=== PATIENT | female | born 1980 | race Caucasian/White ===

== ENCOUNTER 2016-11-07 16:22 | Emergency (ER) | payer OTHER ==
[2016-11-07] MEDS ORDERED: NS 1,000 ML IV ONE ×2 (16:50→17:46)
[2016-11-07] MEDS ORDERED: ONDANSETRON 4 MG/2 ML VIAL IVP ONE (16:50)
[2016-11-07] MEDS ORDERED: LORazepam 2 MG/ML INJ IVP ONE (16:51)
--- NOTE | 2016-11-07 16:52 | UCPHY ---
H & P Patient Type: Established Time Seen by Provider: 11/07/16 16:41 HPI/ROS: CHIEF COMPLAINT: Vomiting and diarrhea HISTORY OF PRESENT ILLNESS: The patient is a 36-year-old female whose had diarrhea for the last 3 days who began vomiting today. She states that she has vomited more times than she can count. No blood from either direction. No fever. No abdominal pain. No chest pain or shortness of breath. No urinary symptoms. No vaginal symptoms. No sick contacts. No travel. No drinking unfiltered water. No recent antibiotics. REVIEW OF SYSTEMS: Constitutional: denies: chills, fever, recent illness, recent injury EENTM: denies: blurred vision, double vision, nose congestion Respiratory: denies: cough, shortness of breath Cardiac: denies: chest pain, irregular heart rate, lightheadedness, palpitations Gastrointestinal/Abdominal: See HPI Genitourinary: denies: dysuria, frequency, hematuria, pain Musculoskeletal: denies: joint pain, muscle pain Skin: denies: lesions, rash, jaundice, bruising Neurological: denies: headache, numbness, paresthesia, tingling, dizziness, weakness Hematologic/Lymphatic: denies: blood clots, easy bleeding, easy bruising Immunologic/allergic: denies: HIV/AIDS, transplant EXAM: GENERAL: Fatigued, well-nourished and in no acute distress. HEAD: Atraumatic, normocephalic. EYES: Pupils equal round and reactive to light, extraocular movements intact, sclera anicteric, conjunctiva are normal. ENT: TMs normal, nares patent, oropharynx clear without exudates. Tachy mucous membranes. NECK: Normal range of motion, supple without lymphadenopathy or JVD. LUNGS: Breath sounds clear to auscultation bilaterally and equal. No wheezes rales or rhonchi. HEART: Regular rate and rhythm without murmurs, rubs or gallops. ABDOMEN: Soft, nontender, normoactive bowel sounds. No guarding, no rebound. No masses appreciated. BACK: No CVA tenderness, no spinal tenderness, step-offs or deformities EXTREMITIES: Normal range of motion, no pitting or edema. No clubbing or cyanosis. NEUROLOGICAL: Cranial nerves II through XII grossly intact. Normal speech, normal gait. 5/5 strength, normal movement in all extremities, normal sensation PSYCH: Normal mood, normal affect. SKIN: Warm, dry, normal turgor, no visible rashes or lesions. Source: Patient Exam Limitations: No limitations - Personal History Tetanus Vaccine Date: 09/2011 - Medical/Surgical History Hx Asthma: No Hx Chronic Respiratory Disease: No Hx Diabetes: No Hx Cardiac Disease: No Hx Renal Disease: No Hx Cirrhosis: No Hx Alcoholism: Yes Hx HIV/AIDS: No Hx Splenectomy or Spleen Trauma: No Other PMH: alcoholism,Bulemia. anxiety associated chest pain. kidney infection (about 2010). She had a negative CT angio chest at [facility] on April 23, 2016. They pursued this study due to an elevated D-dimer at that time. - Family History Significant Family History: No pertinent family hx - Social History Smoking Status: Never smoked Alcohol Use: Sober Drug Use: None Constitutional: Initial Vital Signs Temperature (C) 37.1 C 11/07/16 16:39 Heart Rate 80 11/07/16 16:39 Respiratory Rate 18 11/07/16 16:39 Blood Pressure 113/80 11/07/16 16:39 O2 Sat (%) 96 11/07/16 16:39 O2 Delivery Mode Room Air Allergies/Adverse Reactions: hydrocodone bitartrate [From [place]] Allergy (Severe, Verified 05/06/16 08:47) Itching Home Medications: Medication Instructions Recorded Levothyroxine [Synthroid 25 mcg 05/06/16 (*)] Norgestimate-Ethinyl Estradiol 05/06/16 [Sprintec 28 Day Tablet] Potassium Chloride [Klor-Con 05/06/16 Sprinkle] Ondansetron Odt [Zofran Odt 4 mg 4 mg PO Q4 PRN #20 tab 11/07/16 (RX)] Medical Decision Making ED Course/Re-evaluation: 5:45 p.m. the patient is doing much better. Her abdominal exam remains benign. She is walking to the bathroom. I will treat her with Toradol and more IV fluids. And continue to observe. 7:05 p.m. the patient is feeling much better. Her abdominal exam is benign. She is requesting more Ativan for mild tremors and anxiety. She denies recent alcohol use. She does have a history of alcohol abuse. She states that she is not withdrawing. Will give her some Ativan but she would prefer to take at home. I will also prescribe her Zofran. She is happy with this and declines any further workup or testing. Differential Diagnosis: Partial list of the Differential diagnosis considered include but were not limited to; gastroenteritis, appendicitis, biliary disease, alcohol withdrawal and although unlikely based on the history and physical exam, I also considered , ischemia, obstruction, ovarian cyst, ovarian torsion. I discussed these differential diagnoses and the plan with the patient as well as the usual and expected course. The patient understands that the diagnosis is provisional and that in medicine we are not always correct and that further workup is often warranted. Usual and customary warnings were given. All of the patient's questions were answered. The patient was instructed to return to the emergency department should the symptoms at all worsen or return, otherwise to followup with the physician as we discussed. - Data Points Laboratory Results: Laboratory Results 11/07/16 16:47 11/07/16 16:47 11/07/16 11/07/16 16:47 16:47 WBC 3.82 10^3/uL 10^3/uL (3.80-9.50) RBC 3.30 10^6/uL L 10^6/uL (4.18-5.33) Hgb 11.1 g/dL L g/dL (12.6-16.3) Hct 32.6 % L % (38.0-47.0) MCV 98.8 fL fL (81.5-99.8) MCH 33.6 pg pg (27.9-34.1) MCHC 34.0 g/dL g/dL (32.4-36.7) RDW 12.1 % % (11.5-15.2) Plt Count 187 10^3/uL 10^3/uL (150-400) MPV 8.9 fL fL (8.7-11.7) Neut % (Auto) 59.4 % % (39.3-74.2) Lymph % (Auto) 26.7 % % (15.0-45.0) [place] % (Auto) 11.8 % % (4.5-13.0) Eos % (Auto) 0.5 % L % (0.6-7.6) Baso % (Auto) 0.8 % % (0.3-1.7) Nucleat RBC Rel Count 0.0 % % (0.0-0.2) Absolute Neuts (auto) 2.27 10^3/uL 10^3/uL (1.70-6.50) Absolute Lymphs (auto) 1.02 10^3/uL 10^3/uL (1.00-3.00) Absolute Monos (auto) 0.45 10^3/uL 10^3/uL (0.30-0.80) Absolute Eos (auto) 0.02 10^3/uL L 10^3/uL (0.03-0.40) Absolute Basos (auto) 0.03 10^3/uL 10^3/uL (0.02-0.10) Absolute Nucleated RBC 0.00 10^3/uL 10^3/uL (0-0.01) Immature Gran % 0.8 % % (0.0-1.1) Immature Gran # 0.03 10^3/uL 10^3/uL (0.00-0.10) Sodium 135 mEq/L mEq/L (134-144) Potassium 3.6 mEq/L mEq/L (3.5-5.2) Chloride 98 mEq/L mEq/L (97-110) Carbon Dioxide 25 mEq/l mEq/l (22-31) Anion Gap 12 mEq/L mEq/L (8-16) BUN 8 mg/dL mg/dL (7-23) Creatinine 0.6 mg/dL mg/dL (0.6-1.0) Estimated GFR > 60 Glucose 121 mg/dL H mg/dL (70-100) Calcium 8.0 mg/dL L mg/dL (8.5-10.4) Medications Given: Discontinued Medications Sodium Chloride (Ns) 1,000 mls @ 0 mls/hr IV ONCE ONE PRN Reason: Wide Open Stop: 11/07/16 16:51 Last Admin: 11/07/16 16:50 Dose: 1,000 mls Sodium Chloride (Ns) 1,000 mls @ 0 mls/hr IV ONCE ONE PRN Reason: Wide Open Stop: 11/07/16 17:47 Last Admin: 11/07/16 17:55 Dose: 1,000 mls Ketorolac Tromethamine (Toradol) 30 mg IVP EDNOW ONE Stop: 11/07/16 17:47 Last Admin: 03/16/17 17:55 Dose: 30 mg Lorazepam (Ativan Injection) 1 mg IVP EDNOW ONE Stop: 11/07/16 16:52 Last Admin: 11/07/16 16:55 Dose: 1 mg Lorazepam (Ativan 1 Mg Prepack#4) 1 btl TAKEHOME EDNOW ONE Stop: 11/07/16 19:13 Last Admin: 11/07/16 19:27 Dose: 1 btl Ondansetron HCl (Zofran) 4 mg IVP EDNOW ONE Stop: 11/07/16 16:51 Last Admin: 11/07/16 16:50 Dose: 4 mg Departure - Departure Disposition: Home, Routine, Self-Care Clinical Impression: Vomiting and diarrhea, Anxiety Condition: Fair Instructions: Lorazepam (By mouth), Acute Nausea and Vomiting (ED), Acute Diarrhea (ED), Anxiety (ED) Referrals: Anne Buchanan MD [Primary Care Provider] - As per Instructions Prescriptions: Ondansetron Odt [Zofran Odt 4 mg (RX)] 4 mg PO Q4 PRN #20 tab PRN Reason: Nausea & Vomiting - PQRS PQRS Measurement: Not applicable
[2016-11-07 16:55] LABS: % IMMATURE GRANULYOCYTES 0.8 % (0.0-1.1); ABSOLUTE IMMATURE GRANULOCYTES 0.03 10^3/uL (0.00-0.10); ADD DIFF? NO; ADD MORPH? NO; ADD SCAN? NO; ATYPICAL LYMPHOCYTE FLAG 0 (0-99); FRAGMENT RBC FLAG 0 (0-99); HEMATOCRIT 32.6 % (38.0-47.0); HEMOGLOBIN 11.1 g/dL (12.6-16.3); LEFT SHIFT FLG 0 (0-99); LIPEMIA HEMOLYSIS FLAG 90 (0-99); MEAN CELL HEMOGLOBIN 33.6 pg (27.9-34.1); MEAN CELL VOLUME 98.8 fL (81.5-99.8); MEAN PLATELET VOLUME 8.9 fL (8.7-11.7); PLATELET CLUMPS FLAG 0 (0-99); PLATELET COUNT 187 10^3/uL (150-400); RED CELL DISTRIBUTION WIDTH 12.1 % (11.5-15.2)
[2016-11-07 16:56] VITALS: TEMP 98.8
[2016-11-07 17:08] LABS: ANION GAP 12 mEq/L (8-16); CARBON DIOXIDE 25 mEq/l (22-31); CHLORIDE 98 mEq/L (97-110); CREATININE 0.6 mg/dL (0.6-1.0); GLOMERULAR FILTRATION RATE > 60; GLUCOSE 121 mg/dL (70-100); POTASSIUM 3.6 mEq/L (3.5-5.2); SODIUM 135 mEq/L (134-144)
[2016-11-07] MEDS ORDERED: KETOROLAC 30 MG/1 ML SDV IVP ONE (17:46)
[2016-11-07] MEDS ORDERED: LORAZEPAM 1 MG PREPACK#4 BTL TAKEHOME ONE (19:12)
[2016-11-07 19:30] VITALS: BP 101/69; PULSE 77; RESP 16; O2SAT 95
== END 2016-11-07 19:30 | disposition home or self-care (01) ==
LOC: CED 16:22
DX: R11.0 Nausea (principal); R19.7 Diarrhea, unspecified
CPT/HCPCS: 80048-PO; 85025-PO; 96361-PO; 96374-PO; 96375-PO; 99214-PO; G0463-PO; J1885; J2060; J2405

== ENCOUNTER 2016-11-13 15:13 | Emergency (ER) | payer OTHER ==
[2016-11-13] MEDS ORDERED: METOCLOPRAMIDE 10 MG/2 ML VIAL IVP ONE (15:40)
[2016-11-13] MEDS ORDERED: FAMOTIDINE 20 MG in NS 100 ML IV ONE (15:40)
[2016-11-13] MEDS ORDERED: ONDANSETRON 4 MG/2 ML VIAL IVP ONE (15:40)
[2016-11-13] MEDS ORDERED: NS 1,000 ML IV ONE ×2 (15:40)
[2016-11-13 16:01] LABS: % IMMATURE GRANULYOCYTES 0.5 % (0.0-1.1); ABSOLUTE IMMATURE GRANULOCYTES 0.02 10^3/uL (0.00-0.10); ADD DIFF? NO; ADD MORPH? NO; ADD SCAN? NO; ATYPICAL LYMPHOCYTE FLAG 0 (0-99); FRAGMENT RBC FLAG 0 (0-99); HEMATOCRIT 31.9 % (38.0-47.0); HEMOGLOBIN 10.7 g/dL (12.6-16.3); LEFT SHIFT FLG 0 (0-99); LIPEMIA HEMOLYSIS FLAG 80 (0-99); MEAN CELL HEMOGLOBIN 33.8 pg (27.9-34.1); MEAN CELL HEMOGLOBIN CONCENTR. 33.5 g/dL (32.4-36.7); MEAN CELL VOLUME 100.6 fL (81.5-99.8); PLATELET CLUMPS FLAG 0 (0-99); PLATELET COUNT 139 10^3/uL (150-400); RED BLOOD CELL COUNT 3.17 10^6/uL (4.18-5.33)
[2016-11-13 16:18] LABS: ALANINE AMINOTRANSFERASE 41 IU/L (9-52); ALBUMIN 3.4 g/dL (3.5-5.0); ALKALINE PHOSPHATASE 62 IU/L (38-126); ANION GAP 12 mEq/L (8-16); ASPARTATE AMINOTRANSFERASE 68 IU/L (14-46); BILIRUBIN-CONJUGATED 0.2 mg/dL (0.0-0.5); BILIRUBIN-UNCONJUGATED 0.8 mg/dL (0.0-1.1); CALCIUM 7.9 mg/dL (8.5-10.4); CARBON DIOXIDE 24 mEq/l (22-31); CHLORIDE 99 mEq/L (97-110); CREATININE 0.6 mg/dL (0.6-1.0); GLOMERULAR FILTRATION RATE > 60; GLUCOSE 110 mg/dL (70-100); POTASSIUM 3.6 mEq/L (3.5-5.2); SODIUM 135 mEq/L (134-144); TOTAL PROTEIN 6.8 g/dL (6.3-8.2)
[2016-11-13] MEDS ORDERED: HYDROmorphONE/DILAUDID 1 MG/ML SYR IVP ONE (16:24)
--- NOTE | 2016-11-13 16:32 | UCPHY ---
H & P Time Seen by Provider: 11/13/16 15:39 Patient Type: Established HPI/ROS: HPI Vomiting, diarrhea. 56-year-old female by private vehicle. She reports ongoing episodes of watery diarrhea and vomiting for at least the last month. She was seen in the emergency department here 1 week ago for the same complaint. She was given IV fluids and antiemetics. She felt better and she was discharged. She has also seen her primary care physician for the same complaints recently. Her primary care physician did lab work as well as stool studies about 2 weeks ago and these were unremarkable. She returns to the emergency department today stating that since this morning she again is had watery diarrhea, multiple episodes. Denies any bloody or melenic stool. She reports having several episodes of vomiting. Nonbilious, nonbloody. She reports she feels very anxious. She does have a history of bulimia and anorexia as well as anxiety. She sees a therapist for these problems. She describes having vague abdominal discomfort described as cramping which comes on intermittently. ROS: Constitutional: No fever, no chills. No weakness. Eyes: No discharge. No changes in vision. ENT: No sore throat. No nasal congestion or rhinorrhea. Respiratory: No cough. No shortness of breath. Cardiac: No chest pain, no palpitations. Gastrointestinal: No abdominal pain, no vomiting, no diarrhea. Genitourinary: No hematuria. No dysuria or increased frequency with urination. Musculoskeletal: No back pain. No neck pain. No myalgias or arthralgias. Skin: No rashes. Neurological: No headache. No focal weakness or altered sensation. Past medical history: Anxiety associated chest pain, pyelonephritis. As above. Primary care physician is Dr. Anne Buchanan at the [facility]. Social history: She is and lives with her . Nonsmoker. No alcohol. She denies any significant problems with her or abuse by her . Physical Exam: General Appearance: Alert, anxious.. This patient is responding to questions appropriately and in full sentences. This patient appears well-hydrated and well-nourished. Eyes: Pupils equal and round no pallor or injection. No lid edema, erythema or injection. Faint area of ecchymosis, medial orbit right eye. She states this was from her dog's paw paw hitting her in the eye sometime ago. She gave the same story to her nurse. Respiratory: There are no retractions, lungs are clear to auscultation with good air movement bilaterally. Cardiovascular: Regular rate and rhythm. No murmur. Gastrointestinal: Abdomen is soft with mild and vague tenderness on palpation throughout the upper abdomen, no masses, bowel sounds normal. No focal tenderness at McBurney's point. No Phillips sign. Neurological: Motor sensory function is grossly intact. Cranial nerves are normal. Gait is normal. Skin: Warm and dry, no rashes. Musculoskeletal: Neck is supple and nontender. Extremities are symmetrical. All joints range without pain or impingement. Psychiatric: No agitation. No depression. Database: EKG: Imaging: Procedures: Emergency department course: IV placed. She was placed on a monitor. She was started on IV normal saline with 1-2 L to be given over the next 1-2 hours. She was given 4 mg of IV Zofran , 10 mg of IV Reglan and 20 mg of IV Pepcid. After my evaluation she was given 0.25 mg of IV hydromorphone. Macrocytic anemia. Likely secondary to vitamin B12 or folate deficiency. 5:00 p.m., patient re-evaluated. Resting comfortably at this time. No vomiting or diarrhea in the emergency department. She reports feeling better. She feels comfortable going home and is requesting discharge. Repeat abdominal exam she is soft, nontender nondistended. I discussed follow-up with her primary care physician Dr. Buchanan and referral to Gastroenterology. She was in agreement with this plan. Return to emergency department precautions were reviewed with her. All of her questions were answered. She was discharged from the emergency department in good condition. She again endorses safety at home. Differential Diagnosis: The differential diagnosis on this patient includes but is not limited to irritable bowel syndrome, food-borne illness, anxiety reaction, viral gastroenteritis. Cholecystitis, pancreatitis, appendicitis, other surgical etiology unlikely. This represents a partial list of diagnoses considered. These considerations are based on history, physical exam, past history, reassessment and diagnostic testing. Smoking Status: Never smoked Constitutional: Initial Vital Signs Temperature (C) 37.4 C 11/13/16 15:31 Heart Rate 83 11/13/16 15:31 Respiratory Rate 16 11/13/16 15:31 Blood Pressure 108/74 11/13/16 15:31 O2 Sat (%) 96 11/13/16 15:31 O2 Delivery Mode Room Air Allergies/Adverse Reactions: hydrocodone bitartrate [From [place]] Allergy (Severe, Verified 11/13/16 15:30) Itching Home Medications: Medication Instructions Recorded Norgestimate-Ethinyl Estradiol 05/06/16 [Sprintec 28 Day Tablet] Potassium Chloride [Klor-Con 05/06/16 Sprinkle] Ondansetron Odt [Zofran Odt 4 mg 4 mg PO Q4 PRN #20 tab 11/07/16 (RX)] Ondansetron Odt [Zofran Odt 4 mg 4 mg PO Q4PRN PRN #10 tab 11/13/16 (*)] Medical Decision Making - Data Points Laboratory Results: Laboratory Results 11/13/16 15:55 11/13/16 15:55 11/13/16 11/13/16 11/13/16 15:55 15:55 15:55 WBC 4.31 10^3/uL 10^3/uL (3.80-9.50) RBC 3.17 10^6/uL L 10^6/uL (4.18-5.33) Hgb 10.7 g/dL L g/dL (12.6-16.3) Hct 31.9 % L % (38.0-47.0) MCV 100.6 fL H fL (81.5-99.8) MCH 33.8 pg pg (27.9-34.1) MCHC 33.5 g/dL g/dL (32.4-36.7) RDW 12.0 % % (11.5-15.2) Plt Count 139 10^3/uL L 10^3/uL (150-400) MPV 9.0 fL fL (8.7-11.7) Neut % (Auto) 64.5 % % (39.3-74.2) Lymph % (Auto) 23.4 % % (15.0-45.0) [place] % (Auto) 10.4 % % (4.5-13.0) Eos % (Auto) 0.5 % L % (0.6-7.6) Baso % (Auto) 0.7 % % (0.3-1.7) Nucleat RBC Rel Count 0.0 % % (0.0-0.2) Absolute Neuts (auto) 2.78 10^3/uL 10^3/uL (1.70-6.50) Absolute Lymphs (auto) 1.01 10^3/uL 10^3/uL (1.00-3.00) Absolute Monos (auto) 0.45 10^3/uL 10^3/uL (0.30-0.80) Absolute Eos (auto) 0.02 10^3/uL L 10^3/uL (0.03-0.40) Absolute Basos (auto) 0.03 10^3/uL 10^3/uL (0.02-0.10) Absolute Nucleated RBC 0.00 10^3/uL 10^3/uL (0-0.01) Immature Gran % 0.5 % % (0.0-1.1) Immature Gran # 0.02 10^3/uL 10^3/uL (0.00-0.10) Sodium 135 mEq/L mEq/L (134-144) Potassium 3.6 mEq/L mEq/L (3.5-5.2) Chloride 99 mEq/L mEq/L (97-110) Carbon Dioxide 24 mEq/l mEq/l (22-31) Anion Gap 12 mEq/L mEq/L (8-16) BUN 7 mg/dL mg/dL (7-23) Creatinine 0.6 mg/dL mg/dL (0.6-1.0) Estimated GFR > 60 Glucose 110 mg/dL H mg/dL (70-100) Calcium 7.9 mg/dL L mg/dL (8.5-10.4) Total Bilirubin 1.0 mg/dL mg/dL (0.1-1.4) Conjugated Bilirubin 0.2 mg/dL mg/dL (0.0-0.5) Unconjugated Bilirubin 0.8 mg/dL mg/dL (0.0-1.1) AST 68 IU/L H IU/L (14-46) ALT 41 IU/L IU/L (9-52) Alkaline Phosphatase 62 IU/L IU/L (38-126) Total Protein 6.8 g/dL g/dL (6.3-8.2) Albumin 3.4 g/dL L g/dL (3.5-5.0) Lipase 92.0 IU/L IU/L (23-300) Beta HCG, Qual NEGATIVE Medications Given: Discontinued Medications Hydromorphone HCl (Dilaudid) 0.25 mg IVP EDNOW ONE Stop: 11/13/16 16:25 Last Admin: 11/13/16 17:12 Dose: Not Given Sodium Chloride (Ns) 1,000 mls @ 0 mls/hr IV ONCE ONE PRN Reason: Wide Open Stop: 11/13/16 15:41 Last Admin: 11/13/16 15:55 Dose: 1,000 mls Sodium Chloride (Ns) 1,000 mls @ 0 mls/hr IV ONCE ONE PRN Reason: Wide Open Stop: 11/13/16 15:41 Last Admin: 11/13/16 16:00 Dose: 1,000 mls Famotidine 20 mg/ Sodium (Chloride) 102 mls @ 408 mls/hr IV EDNOW ONE Stop: 11/13/16 15:54 Last Admin: 11/13/16 16:00 Dose: 102 mls Metoclopramide HCl (Reglan Injection) 10 mg IVP EDNOW ONE Stop: 11/13/16 15:41 Last Admin: 11/13/16 15:58 Dose: 10 mg Ondansetron HCl (Zofran) 4 mg IVP EDNOW ONE Stop: 11/13/16 15:41 Last Admin: 11/13/16 15:50 Dose: 4 mg Departure - Departure Disposition: Home, Routine, Self-Care Clinical Impression: Vomiting, Diarrhea, Anxiety Condition: Good Instructions: Gastroenteritis (ED) Additional Instructions: Read and follow provided instructions. Follow-up with your primary care physician, Dr. Anne Buchanan, in 1-2 days for re-evaluation. Discussed referral to Gastroenterology. Take medication as prescribed for nausea and vomiting. Return to the emergency department for worsening symptoms, worsening abdominal pain, vomiting and inability to keep fluids down despite medications or other serious concerns. Referrals: Anne Buchanan MD [Primary Care Provider] - As per Instructions Prescriptions: Ondansetron Odt [Zofran Odt 4 mg (*)] 4 mg PO Q4PRN PRN #10 tab PRN Reason: For Nausea & Vomiting - PQRS PQRS Measurement: Not applicable.
[2016-11-13 17:36] VITALS: BP 112/74; PULSE 73; RESP 18; TEMP 99; O2SAT 97
== END 2016-11-13 17:14 | disposition home or self-care (01) ==
LOC: CED 15:13
DX: R11.10 Vomiting, unspecified (principal); R19.7 Diarrhea, unspecified; F41.9 Anxiety disorder, unspecified
CPT/HCPCS: 80048-PO; 80076-PO; 83690-PO; 84703-PO; 85025-PO; 96361-PO; 96372-PO; 96374-PO; 96375-PO; 99215-PO; G0463-PO; J1170; J2405; J2765

== ENCOUNTER 2016-12-10 12:57 | Emergency (ER) | payer OTHER ==
[2016-12-10] MEDS ORDERED: NS 1,000 ML IV ONE ×2 (13:07→14:25)
--- NOTE | 2016-12-10 13:10 | UCPHY ---
H & P Patient Type: Established Time Seen by Provider: 12/10/16 13:07 HPI/ROS: CHIEF COMPLAINT: Vomiting, anxiety HISTORY OF PRESENT ILLNESS: Patient has a history of anorexia, alcohol dependence and presents to the urgent care with a several day history of vomiting and anxiety. The patient denies any recent alcohol use. She reports she has been sober since . She has had some exacerbation of her chronic anorexia with food restriction over the past several days. The patient reportedly is evaluating some inpatient treatment programs. She currently is taking potassium supplementation and control pills. The patient denies acute abdominal pain, fever, dysuria or other acute complaints. The patient has had several similar attacks this year. She has been seen in the Urgent Care multiple times over the past several years with issues surrounding vomiting and abdominal pain. REVIEW OF SYSTEMS: A comprehensive 10 point review of systems is otherwise negative aside from elements mentioned in the history of present illness. Source: Patient - Personal History Tetanus Vaccine Date: 09/2011 - Medical/Surgical History Hx Asthma: No Hx Chronic Respiratory Disease: No Hx Diabetes: No Hx Cardiac Disease: No Hx Renal Disease: No Hx Cirrhosis: No Hx Alcoholism: Yes Hx HIV/AIDS: No Hx Splenectomy or Spleen Trauma: No Other PMH: alcoholism,Bulemia. anxiety associated chest pain. kidney infection (about 2010). She had a negative CT angio chest at [facility] on April 23, 2016. They pursued this study due to an elevated D-dimer at that time. - Family History Significant Family History: No pertinent family hx - Social History Smoking Status: Never smoked - Physical Exam Exam: General Appearance: Alert, anxious, slightly tremulous Eyes: Pupils equal and round no pallor or injection ENT, Mouth: Mucous membranes moist Respiratory: There are no retractions, lungs are clear to auscultation Cardiovascular: Regular rate and rhythm Gastrointestinal: Abdomen is soft and nontender, no masses, bowel sounds normal Neurological: A&O, normal motor function, normal sensory exam, normal cranial nerves Skin: Warm and dry, no rashes Musculoskeletal: Neck is supple nontender Extremities: symmetrical, full range of motion Constitutional: Initial Vital Signs Temperature (C) 36.8 C 12/10/16 13:11 Heart Rate 88 12/10/16 13:11 Respiratory Rate 22 H 12/10/16 13:11 Blood Pressure 118/80 12/10/16 13:11 O2 Sat (%) 96 12/10/16 13:11 O2 Delivery Mode Room Air Allergies/Adverse Reactions: hydrocodone bitartrate [From [place]] Allergy (Severe, Verified 12/10/16 13:10) Itching Home Medications: Medication Instructions Recorded LORazepam [Ativan] 1 mg PO BID PRN #6 tab 12/10/16 Ondansetron Odt [Zofran Odt] 4 mg PO Q4PRN PRN #20 tab 12/10/16 Ortho Tri-Cyclen 28 Tablet 12/10/16 Potassium 12/10/16 Medical Decision Making - Diagnostics EKG Interpretation: EKG: Complete interpretation has been separately recorded in the POW archive. Summary impression: Sinus rhythm, nonspecific ST T wave changes noted ED Course/Re-evaluation: The patient presents to the ED with symptoms consistent with anxiety and recurrent vomiting. I reviewed the patient's past medical records. The patient does have a history of anorexia and is currently being evaluated for possible inpatient treatment. The patient's vital signs are noted to be stable. The patient had an IV established. She received 4 mg of IV Zofran and 1 mg of IV Ativan. The patient's electrolytes are within normal limits as is her CBC, lipase and electrolyte panel. The patient will be given a prescription for Zofran and a short course of Ativan. The patient does plan on following up with her regular primary care provider and is currently evaluating inpatient treatment for ongoing problem surrounding anorexia. She has no evidence of significant metabolic derangement in the urgent care today. The patient was re-evaluated by myself at 2:30 p.m.. She is resting comfortably in bed. She is comfortable being discharged home and will return for any recurrent symptoms or worsening concerns Differential Diagnosis: Differential diagnosis considered includes anxiety, alcohol withdrawal, metabolic abnormality, renal failure - Data Points Laboratory Results: Laboratory Results 12/10/16 13:15 12/10/16 13:15 12/10/16 12/10/16 12/10/16 13:15 13:15 13:15 WBC 3.81 10^3/uL 10^3/uL (3.80-9.50) RBC 3.53 10^6/uL L 10^6/uL (4.18-5.33) Hgb 11.8 g/dL L g/dL (12.6-16.3) Hct 34.3 % L % (38.0-47.0) MCV 97.2 fL fL (81.5-99.8) MCH 33.4 pg pg (27.9-34.1) MCHC 34.4 g/dL g/dL (32.4-36.7) RDW 13.1 % % (11.5-15.2) Plt Count 142 10^3/uL L 10^3/uL (150-400) MPV 9.1 fL fL (8.7-11.7) Neut % (Auto) 60.1 % % (39.3-74.2) Lymph % (Auto) 28.6 % % (15.0-45.0) [place] % (Auto) 9.7 % % (4.5-13.0) Eos % (Auto) 0.0 % L % (0.6-7.6) Baso % (Auto) 1.3 % % (0.3-1.7) Nucleat RBC Rel Count 0.0 % % (0.0-0.2) Absolute Neuts (auto) 2.29 10^3/uL 10^3/uL (1.70-6.50) Absolute Lymphs (auto) 1.09 10^3/uL 10^3/uL (1.00-3.00) Absolute Monos (auto) 0.37 10^3/uL 10^3/uL (0.30-0.80) Absolute Eos (auto) 0.00 10^3/uL L 10^3/uL (0.03-0.40) Absolute Basos (auto) 0.05 10^3/uL 10^3/uL (0.02-0.10) Absolute Nucleated RBC 0.00 10^3/uL 10^3/uL (0-0.01) Immature Gran % 0.3 % % (0.0-1.1) Immature Gran # 0.01 10^3/uL 10^3/uL (0.00-0.10) Sodium 138 mEq/L mEq/L (134-144) Potassium 3.6 mEq/L mEq/L (3.5-5.2) Chloride 96 mEq/L L mEq/L (97-110) Carbon Dioxide 22 mEq/l mEq/l (22-31) Anion Gap 20 mEq/L H mEq/L (8-16) BUN 8 mg/dL mg/dL (7-23) Creatinine 0.7 mg/dL mg/dL (0.6-1.0) Estimated GFR > 60 Glucose 137 mg/dL H mg/dL (70-100) Calcium 8.3 mg/dL L mg/dL (8.5-10.4) Lipase 113.0 IU/L IU/L (23-300) Beta HCG, Qual NEGATIVE Medications Given: Discontinued Medications Sodium Chloride (Ns) 1,000 mls @ 0 mls/hr IV ONCE ONE PRN Reason: Wide Open Stop: 12/10/16 13:08 Last Admin: 12/10/16 13:18 Dose: 1,000 mls Lorazepam (Ativan Injection) 1 mg IVP EDNOW ONE Stop: 12/10/16 13:22 Last Admin: 12/10/16 13:30 Dose: 1 mg Ondansetron HCl (Zofran) 4 mg IVP EDNOW ONE Stop: 12/10/16 13:17 Last Admin: 12/10/16 13:22 Dose: 4 mg Departure - Departure Disposition: Home, Routine, Self-Care Clinical Impression: Vomiting, Anxiety Condition: Good Instructions: Acute Nausea and Vomiting (ED) Additional Instructions: 1. Zofran as needed for nausea. Referrals: Anne Buchanan MD [Primary Care Provider] - As per Instructions Prescriptions: LORazepam [Ativan] 1 mg PO BID PRN #6 tab PRN Reason: for pain Ondansetron Odt [Zofran Odt] 4 mg PO Q4PRN PRN #20 tab PRN Reason: For Nausea - PQRS PQRS Measurement: NA
[2016-12-10] MEDS ORDERED: ONDANSETRON 4 MG/2 ML VIAL IVP ONE (13:16)
[2016-12-10] MEDS ORDERED: LORazepam 2 MG/ML INJ IVP ONE (13:21)
[2016-12-10 13:24] LABS: % IMMATURE GRANULYOCYTES 0.3 % (0.0-1.1); ABSOLUTE IMMATURE GRANULOCYTES 0.01 10^3/uL (0.00-0.10); ADD DIFF? NO; ADD MORPH? NO; ADD SCAN? NO; ATYPICAL LYMPHOCYTE FLAG 10 (0-99); FRAGMENT RBC FLAG 0 (0-99); HEMATOCRIT 34.3 % (38.0-47.0); HEMOGLOBIN 11.8 g/dL (12.6-16.3); LEFT SHIFT FLG 0 (0-99); LIPEMIA HEMOLYSIS FLAG 90 (0-99); MEAN CELL HEMOGLOBIN 33.4 pg (27.9-34.1); MEAN CELL HEMOGLOBIN CONCENTR. 34.4 g/dL (32.4-36.7); MEAN CELL VOLUME 97.2 fL (81.5-99.8); MEAN PLATELET VOLUME 9.1 fL (8.7-11.7); PLATELET CLUMPS FLAG 0 (0-99); PLATELET COUNT 142 10^3/uL (150-400); RED BLOOD CELL COUNT 3.53 10^6/uL (4.18-5.33); RED CELL DISTRIBUTION WIDTH 13.1 % (11.5-15.2)
[2016-12-10 13:36] LABS: ANION GAP 20 mEq/L (8-16); CALCIUM 8.3 mg/dL (8.5-10.4); CARBON DIOXIDE 22 mEq/l (22-31); CHLORIDE 96 mEq/L (97-110); CREATININE 0.7 mg/dL (0.6-1.0); GLOMERULAR FILTRATION RATE > 60; GLUCOSE 137 mg/dL (70-100); POTASSIUM 3.6 mEq/L (3.5-5.2); SODIUM 138 mEq/L (134-144)
[2016-12-10 14:22] VITALS: RESP 20; O2SAT 95
--- NOTE | 2016-12-10 14:37 | CPEKG ---
Heart Rate: 90 RR Interval: 667 P-R Interval: 152 QRSD Interval: 76 QT Interval: 400 QTC Interval: 490 P [place]: 149 QRS [place]: 149 T Wave [place]: 141 EKG Severity - ABNORMAL ECG - EKG Impression: SINUS OR ECTOPIC ATRIAL RHYTHM EKG Impression: RIGHT AXIS DEVIATION EKG Impression: LOW VOLTAGE IN FRONTAL LEADS Electronically Signed By: Gaston Dong 10-Dec-2016 14:39:15
[2016-12-10 15:40] VITALS: BP 101/63; PULSE 92; TEMP 98.6
== END 2016-12-10 15:12 | disposition home or self-care (01) ==
LOC: CED 12:57
DX: R11.10 Vomiting, unspecified (principal); F41.9 Anxiety disorder, unspecified; R63.0 Anorexia; F10.21 Alcohol dependence, in remission; Z86.59 Personal history of other mental and behavioral disorders
CPT/HCPCS: 80048-PO; 83690-PO; 84703-PO; 85025-PO; 93010-PO; 96361-PO; 96374-PO; 96375-PO; 99215-PO; G0463-PO; J2060; J2405

== ENCOUNTER 2017-01-10 13:44 | Emergency (ER) | payer OTHER ==
--- NOTE | 2017-01-10 13:51 | EDPHY ---
H & P Time Seen by Provider: 01/10/17 13:50 HPI/ROS: CHIEF COMPLAINT: Suspected alcohol use HISTORY OF PRESENT ILLNESS: 36 year old female arrives via ambulance from the [facility] in [place]. She was recently discharged from the [facility] eating disorder and alcohol detoxification program, was at the [facility] day program today in [place] and they suspected the patient had been drinking alcohol after when she denied it. En route via EMS she admitted to alcohol use and numerous small bottles of alcohol or found in her possession. She denies suicidal or homicidal ideation. She is regretful for her actions. REVIEW OF SYSTEMS: A ten point review of systems was performed and is negative with the exception of the items mentioned in the HPI PAST MEDICAL & SURGICAL HISTORY: self-described history of alcoholism and eating disorder SOCIAL HISTORY: self-described history of alcoholism, positive alcohol use today FAMILY HISTORY: family history of alcoholism PHYSICAL EXAM (Prior to examination, patient consented to physical exam, hands were washed and my usual and customary physical exam procedures followed) 1) GENERAL: Well-developed, well-nourished, alert and oriented. Appears to be in no acute distress. 2) HEAD: Normocephalic, atraumatic 3) HEENT: Pupils equal, round, reactive to light bilaterally. Sclera anicteric. 4) NECK: Full range of motion, no meningeal signs. 5) LUNGS: Clear auscultation bilaterally, no wheezes, no rhonchi, no retractions. 6) HEART: Regular rate and rhythm, no murmur, no heave, no gallop. 7) ABDOMEN: No guarding, no rebound, no focal tenderness, 8) MUSCULOSKELETAL: No peripheral edema or discoloration. 9) BACK: No CVA tenderness 10) SKIN: No rash, no petechiae. 11) Psychiatric: Patient is oriented X 3, there is no agitation. DIFFERENTIAL DIAGNOSIS: in no particular include but limited to polysubstance abuse, head injury, suicidal ideation, homicidal ideation Smoking Status: Never smoked Constitutional: Initial Vital Signs Temperature (C) 37.6 C 01/10/17 13:52 Heart Rate 10 L 01/10/17 13:52 Respiratory Rate 20 01/10/17 13:52 Blood Pressure 108/77 01/10/17 13:52 O2 Sat (%) 96 01/10/17 13:52 O2 Delivery Mode Room Air Allergies/Adverse Reactions: hydrocodone bitartrate [From [place]] Allergy (Severe, Verified 12/10/16 13:10) Itching Home Medications: Medication Instructions Recorded LORazepam [Ativan] 1 mg PO BID PRN #6 tab 12/10/16 Ondansetron Odt [Zofran Odt] 4 mg PO Q4PRN PRN #20 tab 12/10/16 Ortho Tri-Cyclen 28 Tablet 12/10/16 Potassium 12/10/16 MDM/Departure - MDM ED Course/Re-evaluation: Patient admits to alcohol use. She is clinically sober at this time clear speech pattern, awake alert oriented person place time events, stable steady gait. She would like to be discharged go home and sleep. She denies suicidal Or homicidal ideation. 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 Referrals: [facility] [Outside] - 1-2 days without fail
[2017-01-10 13:55] VITALS: TEMP 99.7
[2017-01-10 14:23] VITALS: BP 104/77; PULSE 102; RESP 16; O2SAT 93
== END 2017-01-10 14:23 | disposition home or self-care (01) ==
LOC: EDUNIT# → EEVIPCON 13:44
DX: F10.99 Alcohol use, unspecified with unspecified alcohol-induced disorder (principal)

== ENCOUNTER → 2019-01-04 | Outpatient (CLI) | payer OTHER | LOC: BMCIMAGING 13:25 | PROVIDERS: ATTEND Internal Medicine | DX: K76.0 Fatty (change of) liver, not elsewhere classified (principal); K80.20 Calculus of gallbladder without cholecystitis without obstruction ==

== ENCOUNTER → 2019-01-26 | Outpatient (CLI) | payer OTHER | LOC: EMCIMAGING 09:35 ==